=== PATIENT | male | born 1985 | race Caucasian/White ===

== ENCOUNTER 2024-12-16 03:53 | Inpatient (IN) | payer OTHER ==
[2024-12-16] MEDS: LACTATED RINGERS SOLUTION 1000 ML INFUS.BAG IV ONE (05:13)
[2024-12-16] MEDS ORDERED: VANCOMYCIN 1 GM PREMIX (F) 1 GM/200 ML BAG ONE (05:26)
[2024-12-16] MEDS ORDERED: PIPERACILLIN/TAZOB 2.25 GM 2.25 GM/50 ML BAG IVPB ONE (05:26)
[2024-12-16] MEDS ORDERED: FENTANYL CITRATE/PF 50 MCG/ML VIAL ONE ×2 (05:54→07:45)
[2024-12-16 07:24] LABS: HEMATOCRIT 32.2 % (35.4-49); HEMOGLOBIN 10.9 GM/dL (11.7-16.9); MCHC 33.8 g/dl (32.0-35.9); MEAN CELL VOLUME 91.8 fl (80-96); MEAN PLT VOLUME 7.4 fl (7.5-11.1); PLATELET COUNT 260 10^3/uL (134-434); RBC 3.51 M/mm3 (4.00-5.60); RDW 15.3 % (11.9-15.9); WHITE BLOOD COUNT 6.9 K/mm3 (4.0-10.0)
[2024-12-16 07:36] LABS: INR 1.23 (0.83-1.09); PROTHROMBIN TIME (PATIENT) 13.5 SEC (9.7-13.0)
[2024-12-16 07:38] LABS: ACTIVATED PTT 33.7 SECONDS (25.2-36.5)
[2024-12-16] MEDS: VANCOMYCIN 1,000 MG in DEXTROSE 5%-WATER - 250 ML IVPB ONE (07:38)
[2024-12-16 07:44] LABS: CHLORIDE 85 mmol/L (98-107); POTASSIUM 3.7 mmol/L (3.5-5.1); SODIUM 129 mmol/L (136-145)
[2024-12-16] MEDS: NOREPINEPHRINE BITARTRATE/D5W 8 MG/250 ML BAG IVPB SCH (07:45)
[2024-12-16 07:46] LABS: ALBUMIN 2.5 g/dl (3.4-5.0); ANION GAP 13 mmol/L (4-13); BLOOD UREA NITROGEN 40.1 mg/dL (7-18); CALCIUM 9.7 mg/dL (8.5-10.1); CO2 31 mmol/L (21-32); GLUCOSE,RANDOM 88 mg/dL (74-106)
[2024-12-16 07:50] LABS: CREATININE 5.6 mg/dL (0.55-1.3); SGOT/AST 8 U/L (15-37)
[2024-12-16 07:51] LABS: BILIRUBIN,TOTAL 0.7 mg/dL (0.2-1); SGPT/ALT < 6 U/L (13-61)
[2024-12-16 07:53] LABS: ALK PHOS 130 U/L (45-117)
[2024-12-16] MEDS ORDERED: ONDANSETRON 4 MG/2 ML VIAL ONE ×2 (07:54→16:49)
[2024-12-16] MEDS: ONDANSETRON 4 MG/2 ML VIAL IVPUSH ONE (08:06)
[2024-12-16] MEDS: NOREPINEPHRINE BITARTRATE 16,000 MCG in SODIUM CHLORIDE 484 ML IV SCH (08:17)
[2024-12-16] MEDS: PIPERACILLIN/TAZOB 2.25 GM 2.25 GM in DEXTROSE 5%-WATER - 50 ML IVPB ONE (09:07)
[2024-12-16] MEDS ORDERED: ARTIFICIAL TEARS OPHTHALMIC DROPS OU PRN (09:16)
[2024-12-16 09:45] LABS: PLATELET ESTIMATE ADEQUATE
[2024-12-16] MEDS ORDERED: FENTANYL PATCH WASTE TD PRN (10:11)
[2024-12-16] MEDS: oxyCODONE HCL 5 MG TABLET PO PRN (10:31)
[2024-12-16] MEDS: fentaNYL 75mcg/hr PATCH.TD72 TD SCH (10:33)
[2024-12-16] MEDS: LIDOCAINE 5% TOPICAL PATCH TP SCH (10:35)
[2024-12-16] MEDS: MIDODRINE HCL 5 MG TABLET PO SCH (10:35)
[2024-12-16] MEDS: PANTOPRAZOLE 40 MG TABLET PO SCH (10:35)
[2024-12-16] MEDS: FLUoxetine HCL 20 MG CAPSULE PO SCH (10:35)
[2024-12-16] MEDS: INSULIN ASPART SLIDING SCALE (NOVOLOG) 1 VIAL SQ SCH (14:53)
[2024-12-16] MEDS: POLYETHYLENE GLYCOL (HEALTHYLAX) 3350 17 GM PACKET PO SCH (14:54)
[2024-12-16] MEDS: MUPIROCIN 2% TOPICAL OINTMENT FOR DECOLONIZATION NS SCH (14:55)
[2024-12-16] MEDS: SEVELAMER CARBONATE 800 MG TAB (FP) PO SCH (15:10)
[2024-12-16] MEDS: HEPARIN NA (PORCINE) 5,000 UNITS/ML 1ML VIAL SQ SCH (16:07)
[2024-12-16] MEDS ORDERED: SODIUM CHLORIDE 250 ML IV PRN (16:49)
[2024-12-16] MEDS: ONDANSETRON 4 MG/2 ML VIAL IVPUSH PRN (16:55)
[2024-12-16] MEDS: HYDROmorphone HCL CARPU-JECT 2 MG/1 ML DISP.SYRIN IVPUSH ONE (16:55)
[2024-12-16] MEDS: EPOETIN ALFA-EPBX 4,000 UNIT/ML VIAL SQ ONE (20:21)
[2024-12-16] MEDS: ACETAMINOPHEN 1000 MG/100 ML BAG IVPB PRN (20:27)
[2024-12-16] MEDS: GABAPENTIN 100 MG CAPSULE PO SCH (21:16)
[2024-12-16] MEDS: MELATONIN 5 MG TABLETS PO SCH (21:24)
[2024-12-16] MEDS ORDERED: CHLORHEXIDINE GLUCONATE 4% CLEANSER FOR DECOLONIZATION TP SCH (22:00)
[2024-12-16] MEDS: LIDOCAINE PATCH REMOVAL MC SCH (22:12)
[2024-12-17] MEDS: BISACODYL 10 MG SUPP.RECT PR ONE (05:00)
[2024-12-17] MEDS: HYDROCORTISONE SOD SUCCINATE 100 MG/2 ML VIAL IVPB SCH (06:38)
[2024-12-17] MEDS: VASopressin 40 UNITS/100 ML BAG IV SCH (06:56)
[2024-12-17 07:07] LABS: BASO % 0.9 % (0-2.0); EOS % 4.2 % (0-4.5); HEMATOCRIT 36.6 % (35.4-49); HEMOGLOBIN 11.9 GM/dL (11.7-16.9); LYMPH % 7.2 % (8-40); MCH 30.5 pg (25.7-33.7); MCHC 32.6 g/dl (32.0-35.9); MEAN CELL VOLUME 93.6 fl (80-96); MEAN PLT VOLUME 7.3 fl (7.5-11.1); MONO % 8.6 % (3.8-10.2); NEUT % 79.1 % (42.8-82.8); PLATELET COUNT 355 10^3/uL (134-434); RBC 3.91 M/mm3 (4.00-5.60); RDW 15.6 % (11.9-15.9); WHITE BLOOD COUNT 11.2 K/mm3 (4.0-10.0)
[2024-12-17 07:18] LABS: CHLORIDE 90 mmol/L (98-107); POTASSIUM 3.6 mmol/L (3.5-5.1); SODIUM 132 mmol/L (136-145)
[2024-12-17 07:21] LABS: ALBUMIN 2.4 g/dl (3.4-5.0); ANION GAP 10 mmol/L (4-13); BLOOD UREA NITROGEN 26.2 mg/dL (7-18); CALCIUM 9.7 mg/dL (8.5-10.1); CO2 32 mmol/L (21-32); GLUCOSE,RANDOM 92 mg/dL (74-106); MAGNESIUM 1.8 mg/dL (1.8-2.4)
[2024-12-17 07:24] LABS: CREATININE 4.2 mg/dL (0.55-1.3); SGOT/AST 9 U/L (15-37); SGPT/ALT < 6 U/L (13-61)
[2024-12-17 07:26] LABS: BILIRUBIN,TOTAL 0.6 mg/dL (0.2-1); TOT PROT 8.3 g/dl (6.4-8.2)
[2024-12-17 07:27] LABS: ALK PHOS 142 U/L (45-117)
[2024-12-17] MEDS: CEFTRIAXONE 1 G/50 ML PREMIX 50 ML IVPB SCH (09:45)
[2024-12-17] MEDS: MIDODRINE HCL 5 MG TABLET PO SCH (09:46)
[2024-12-17] MEDS: oxyCODONE HCL 5 MG TABLET PO PRN (10:24)
[2024-12-17] MEDS: HYDROmorphone HCL CARPU-JECT 2 MG/1 ML DISP.SYRIN IVPUSH PRN (12:40)
[2024-12-18] MEDS: SODIUM CHLORIDE 1,000 ML IV STA (03:47)
[2024-12-18 08:06] LABS: BASO % 0.3 % (0-2.0); EOS % 0.9 % (0-4.5); HEMATOCRIT 33.6 % (35.4-49); HEMOGLOBIN 11.5 GM/dL (11.7-16.9); LYMPH % 7.1 % (8-40); MCH 31.2 pg (25.7-33.7); MCHC 34.1 g/dl (32.0-35.9); MEAN CELL VOLUME 91.7 fl (80-96); MEAN PLT VOLUME 7.4 fl (7.5-11.1); MONO % 5.9 % (3.8-10.2); NEUT % 85.8 % (42.8-82.8); PLATELET COUNT 346 10^3/uL (134-434); RBC 3.67 M/mm3 (4.00-5.60); RDW 15.5 % (11.9-15.9); WHITE BLOOD COUNT 10.7 K/mm3 (4.0-10.0)
[2024-12-18 08:27] LABS: CHLORIDE 87 mmol/L (98-107); SODIUM 129 mmol/L (136-145)
[2024-12-18 08:35] LABS: ALBUMIN 2.5 g/dl (3.4-5.0); BLOOD UREA NITROGEN 34.5 mg/dL (7-18); CREATININE 5.4 mg/dL (0.55-1.3); GLUCOSE,RANDOM 84 mg/dL (74-106); PHOSPHOROUS 7.2 mg/dL (2.5-4.9)
[2024-12-18 08:36] LABS: BILIRUBIN,TOTAL 0.6 mg/dL (0.2-1); TOT PROT 8.2 g/dl (6.4-8.2)
[2024-12-18 08:37] LABS: ANION GAP 12 mmol/L (4-13); CALCIUM 9.9 mg/dL (8.5-10.1); CO2 29 mmol/L (21-32); MAGNESIUM 2.2 mg/dL (1.8-2.4)
[2024-12-18 08:38] LABS: ALK PHOS 148 U/L (45-117); SGOT/AST 9 U/L (15-37)
[2024-12-18 08:39] LABS: SGPT/ALT < 6 U/L (13-61)
[2024-12-18] MEDS: AZITHROMYCIN IVPB 500 MG/250 ML BAG IVPB SCH (12:27)
[2024-12-18 14:03] VITALS: BMI 18.8
[2024-12-18] MEDS: HYDROmorphone HCL CARPU-JECT 2 MG/1 ML DISP.SYRIN IVPUSH ONE (18:19)
[2024-12-18] MEDS: LIDOCAINE HCL 2% JELLY 10 ML CARTRIDGE UR ONE (18:20)
[2024-12-18] MEDS: ACETAMINOPHEN 1000 MG/100 ML BAG IVPB PRN (22:59)
[2024-12-19 07:20] LABS: BASO % 0.2 % (0-2.0); EOS % 0.5 % (0-4.5); HEMATOCRIT 37.3 % (35.4-49); HEMOGLOBIN 12.3 GM/dL (11.7-16.9); LYMPH % 8.4 % (8-40); MCH 30.7 pg (25.7-33.7); MCHC 32.9 g/dl (32.0-35.9); MEAN CELL VOLUME 93.5 fl (80-96); MEAN PLT VOLUME 7.2 fl (7.5-11.1); MONO % 5.8 % (3.8-10.2); NEUT % 85.1 % (42.8-82.8); PLATELET COUNT 352 10^3/uL (134-434); RBC 3.99 M/mm3 (4.00-5.60); RDW 15.8 % (11.9-15.9); WHITE BLOOD COUNT 13.9 K/mm3 (4.0-10.0)
[2024-12-19 07:43] LABS: POTASSIUM 4.6 mmol/L (3.5-5.1)
[2024-12-19 07:52] LABS: CALCIUM 9.7 mg/dL (8.5-10.1)
[2024-12-19 07:53] LABS: ALBUMIN 2.5 g/dl (3.4-5.0); CO2 28 mmol/L (21-32); GLUCOSE,RANDOM 79 mg/dL (74-106)
[2024-12-19 07:56] LABS: CREATININE 6.2 mg/dL (0.55-1.3)
[2024-12-19 07:57] LABS: TOT PROT 7.9 g/dl (6.4-8.2)
[2024-12-19 08:49] LABS: ALK PHOS 164 U/L (45-117); ANION GAP 14 mmol/L (4-13); BILIRUBIN,TOTAL 0.5 mg/dL (0.2-1); BLOOD UREA NITROGEN 46.8 mg/dL (7-18); CHLORIDE 90 mmol/L (98-107); MAGNESIUM 2.3 mg/dL (1.8-2.4); SGOT/AST 7 U/L (15-37); SGPT/ALT < 6 U/L (13-61); SODIUM 131 mmol/L (136-145)
[2024-12-19] MEDS ORDERED: SODIUM CHLORIDE 250 ML IV PRN (08:55)
[2024-12-19] MEDS: HEPARIN NA (PORCINE) 5,000 UNITS/ML 1ML VIAL IVPUSH ONE (09:00)
[2024-12-19 11:02] LABS: HIV INTERPRETATION NEGATIVE (NEGATIVE)
[2024-12-19] MEDS: HYDROmorphone HCL CARPU-JECT 2 MG/1 ML DISP.SYRIN IVPUSH ONE (11:15)
[2024-12-19] MEDS: MINERAL OIL 30 ML UNIT-DOSE CUP NGT ONE (12:30)
[2024-12-20] MEDS ORDERED: DEXTROSE 5%-0.45% SALINE 1,000 ML IV SCH (07:45)
[2024-12-20 08:17] LABS: HEMATOCRIT 37.1 % (35.4-49); MCH 30.4 pg (25.7-33.7); MCHC 32.3 g/dl (32.0-35.9); MEAN CELL VOLUME 94.2 fl (80-96); PLATELET COUNT 299 10^3/uL (134-434); RBC 3.94 M/mm3 (4.00-5.60); RDW 15.7 % (11.9-15.9)
[2024-12-20] MEDS: LIDOCAINE HCL 2% JELLY 10 ML CARTRIDGE TP PRN (08:40)
[2024-12-20 08:46] LABS: CHLORIDE 93 mmol/L (98-107); POTASSIUM 3.9 mmol/L (3.5-5.1); SODIUM 134 mmol/L (136-145)
[2024-12-20] MEDS: DEXTROSE 5%-NORMAL SALINE 1,000 ML IV SCH ×3 (08:49→18:49)
[2024-12-20 08:55] LABS: CALCIUM 9.4 mg/dL (8.5-10.1)
[2024-12-20 08:56] LABS: ALBUMIN 2.5 g/dl (3.4-5.0); ANION GAP 10 mmol/L (4-13); BLOOD UREA NITROGEN 28.8 mg/dL (7-18); CO2 30 mmol/L (21-32); GLUCOSE,RANDOM 78 mg/dL (74-106); MAGNESIUM 2.1 mg/dL (1.8-2.4)
[2024-12-20 08:58] LABS: SGPT/ALT < 6 U/L (13-61)
[2024-12-20 08:59] LABS: CREATININE 4.2 mg/dL (0.55-1.3); PHOSPHOROUS 6.4 mg/dL (2.5-4.9); SGOT/AST 10 U/L (15-37)
[2024-12-20 09:00] LABS: BILIRUBIN,TOTAL 0.9 mg/dL (0.2-1); TOT PROT 8.2 g/dl (6.4-8.2)
[2024-12-20 09:01] LABS: ALK PHOS 188 U/L (45-117)
[2024-12-20] MEDS ORDERED: DEXTROSE 5%-NORMAL SALINE 1,000 ML IV SCH ×2 (11:59→17:43)
[2024-12-20] MEDS: HYDROmorphone HCL CARPU-JECT 2 MG/1 ML DISP.SYRIN IVPUSH ONE (12:31)
[2024-12-20] MEDS ORDERED: ONDANSETRON 4 MG/2 ML VIAL IVPUSH PRN (17:43)
[2024-12-20] MEDS ORDERED: LIDOCAINE HCL 2% JELLY 10 ML CARTRIDGE TP PRN (17:43)
[2024-12-20] MEDS: HYDROCORTISONE SOD SUCCINATE 100 MG/2 ML VIAL IVPB SCH (18:00)
[2024-12-20] MEDS ORDERED: HYDROCORTISONE SOD SUCCINATE 100 MG/2 ML VIAL IVPB SCH (18:00)
[2024-12-20] MEDS: IOHEXOL (OMNIPAQUE IV) 350 MG/ML - 100 ML BOTTLE GT ONE (18:19)
[2024-12-20] MEDS: MIDODRINE HCL 5 MG TABLET PO SCH (18:57)
[2024-12-20] MEDS: CEFTRIAXONE 2 GM-D5W BAG 2 GM/50 ML BAG IVPB SCH (20:16)
[2024-12-20] MEDS: VANCOMYCIN 1,000 MG in DEXTROSE 5%-WATER - 250 ML IVPB ONE (20:16)
[2024-12-20] MEDS: oxyCODONE HCL 5 MG TABLET PO PRN (20:39)
[2024-12-20] MEDS: GABAPENTIN 100 MG CAPSULE PO SCH (21:32)
[2024-12-20] MEDS: HEPARIN NA (PORCINE) 5,000 UNITS/ML 1ML VIAL SQ SCH (21:32)
[2024-12-20] MEDS: MELATONIN 5 MG TABLETS PO SCH (21:32)
[2024-12-20] MEDS: MIRTAZAPINE 15 MG TABLET (FP) PO SCH (21:32)
[2024-12-20] MEDS: POLYETHYLENE GLYCOL (HEALTHYLAX) 3350 17 GM PACKET PO SCH (21:33)
[2024-12-20] MEDS: LIDOCAINE PATCH REMOVAL MC SCH (21:33)
[2024-12-20] MEDS ORDERED: MIRTAZAPINE 15 MG TABLET (FP) PO SCH (22:00)
[2024-12-20] MEDS: INSULIN ASPART SLIDING SCALE (NOVOLOG) 1 VIAL SQ SCH (22:21)
[2024-12-21] MEDS: HYDROmorphone HCL CARPU-JECT 2 MG/1 ML DISP.SYRIN IVPUSH PRN (00:56)
[2024-12-21] MEDS: SEVELAMER CARBONATE 800 MG TAB (FP) PO SCH (06:34)
[2024-12-21] MEDS ORDERED: SODIUM CHLORIDE 250 ML IV PRN (07:07)
[2024-12-21] MEDS ORDERED: HYDROmorphone HCL CARPU-JECT 2 MG/1 ML DISP.SYRIN IVPUSH PRN (08:00)
[2024-12-21 08:08] LABS: BASO % 0.8 % (0-2.0); EOS % 2.2 % (0-4.5); HEMATOCRIT 36.3 % (35.4-49); HEMOGLOBIN 11.6 GM/dL (11.7-16.9); LYMPH % 16.9 % (8-40); MCH 30.3 pg (25.7-33.7); MCHC 32.1 g/dl (32.0-35.9); MEAN CELL VOLUME 94.6 fl (80-96); MEAN PLT VOLUME 6.8 fl (7.5-11.1); MONO % 7.9 % (3.8-10.2); NEUT % 72.2 % (42.8-82.8); PLATELET COUNT 213 10^3/uL (134-434); RBC 3.84 M/mm3 (4.00-5.60); RDW 16.1 % (11.9-15.9); WHITE BLOOD COUNT 6.7 K/mm3 (4.0-10.0)
[2024-12-21 08:33] LABS: BLOOD UREA NITROGEN 39.5 mg/dL (7-18); CALCIUM 9.2 mg/dL (8.5-10.1)
[2024-12-21 08:36] LABS: CREATININE 5.1 mg/dL (0.55-1.3)
[2024-12-21] MEDS ORDERED: RIFAMPIN 300 MG CAPSULE PO SCH (10:00)
[2024-12-21] MEDS: RIFAMPIN 300 MG CAPSULE PO SCH (12:21)
[2024-12-21] MEDS: FLUoxetine HCL 20 MG CAPSULE PO SCH (12:21)
[2024-12-21] MEDS: PANTOPRAZOLE 40 MG TABLET PO SCH (12:21)
[2024-12-21] MEDS: CEFTRIAXONE 1 G/50 ML PREMIX 50 ML IVPB SCH (12:28)
[2024-12-21] MEDS: LIDOCAINE 5% TOPICAL PATCH TP SCH (12:29)
[2024-12-21] MEDS: AZITHROMYCIN IVPB 500 MG/250 ML BAG IVPB SCH (13:02)
[2024-12-22] MEDS ORDERED: VANCOMYCIN 1,000 MG VIAL (RESTRICTED TO ID ONLY) ONE (07:56)
[2024-12-22] MEDS ORDERED: GENTAMICIN SO4 80 MG/2 ML VIAL ONE ×2 (07:56→12:20)
[2024-12-22] MEDS ORDERED: THROMBIN (BOVINE) 20,000 UNIT VIAL TP ONE (07:56)
[2024-12-22] MEDS ORDERED: BUPIVACAINE HCL/PF 0.5% (5MG/ML) 10 ML VIAL ONE (07:57)
[2024-12-22] MEDS ORDERED: LIDOCAINE 1%/EPI 1:100000 (20 ML MULTI DOSE VIAL) ONE (07:57)
[2024-12-22] MEDS ORDERED: BUPIVACAINE LIPOSOME/PF (EXPAREL) 266 MG/20 ML VIAL ONE (07:57)
[2024-12-22 08:10] LABS: INR 1.06 (0.83-1.09); PROTHROMBIN TIME (PATIENT) 11.6 SEC (9.7-13.0)
[2024-12-22 08:11] LABS: POTASSIUM 3.5 mmol/L (3.5-5.1)
[2024-12-22 08:13] LABS: ACTIVATED PTT 31.4 SECONDS (25.2-36.5)
[2024-12-22 08:16] LABS: BLOOD UREA NITROGEN 21.6 mg/dL (7-18); CALCIUM 8.7 mg/dL (8.5-10.1)
[2024-12-22 08:17] LABS: ALBUMIN 2.5 g/dl (3.4-5.0); MAGNESIUM 1.8 mg/dL (1.8-2.4)
[2024-12-22 08:21] LABS: BASO % 0.7 % (0-2.0); CREATININE 3.5 mg/dL (0.55-1.3); EOS % 1.9 % (0-4.5); LYMPH % 13.8 % (8-40); MCH 30.7 pg (25.7-33.7); MCHC 32.5 g/dl (32.0-35.9); MEAN CELL VOLUME 94.6 fl (80-96); MONO % 6.1 % (3.8-10.2); NEUT % 77.5 % (42.8-82.8); PLATELET COUNT 176 10^3/uL (134-434); RDW 15.8 % (11.9-15.9); WHITE BLOOD COUNT 7.2 K/mm3 (4.0-10.0)
[2024-12-22 08:22] LABS: BILIRUBIN,TOTAL 0.4 mg/dL (0.2-1); TOT PROT 7.1 g/dl (6.4-8.2)
[2024-12-22] MEDS: fentaNYL 75mcg/hr PATCH.TD72 TD SCH (09:24)
[2024-12-22] MEDS ORDERED: VASopressin 20 UNITS/ML VIAL IV ONE (10:27)
[2024-12-22] MEDS ORDERED: ROCURONIUM BROMIDE 50 MG/5 ML SYRINGE ONE ×3 (10:34→12:09)
[2024-12-22] MEDS ORDERED: MIDAZOLAM HCL 2 MG/2 ML SINGLE DOSE VIAL ONE (10:34)
[2024-12-22] MEDS ORDERED: ROCURONIUM BROMIDE 50 MG/5 ML VIAL ONE (10:34)
[2024-12-22] MEDS ORDERED: ETOMIDATE 20 MG/10 ML VIAL IVPUSH ONE (10:34)
[2024-12-22] MEDS: ceFAZolin SODIUM 1 GM VIAL IVPB ONE (11:10)
[2024-12-22] MEDS: VANCOMYCIN 1,000 MG VIAL (RESTRICTED TO ID ONLY) IVPB ONE (11:10)
[2024-12-22] MEDS ORDERED: PROPOFOL 20 ML ONE (11:14)
[2024-12-22] MEDS: LIDOCAINE 1%/EPI 1:100000 (20 ML MULTI DOSE VIAL) IJ ONE (11:16)
[2024-12-22] MEDS ORDERED: HYDROmorphone HCl 2 MG/ML VIAL ONE (12:33)
[2024-12-22] MEDS: BUPIVACAINE HCL/PF 0.5% (5MG/ML) 10 ML VIAL IJ ONE (12:38)
[2024-12-22] MEDS: BUPIVACAINE LIPOSOME/PF (EXPAREL) 266 MG/20 ML VIAL NR ONE (12:38)
[2024-12-22] MEDS ORDERED: SUGAMMADEX SODIUM 200 MG/2 ML VIAL ONE (13:01)
[2024-12-22] MEDS ORDERED: diphenhydrAMINE HCL 25 MG CAPSULE (FP) PO PRN (13:14)
[2024-12-22] MEDS ORDERED: ONDANSETRON 4 MG/2 ML VIAL IVPUSH PRN (13:26)
[2024-12-23 08:35] LABS: HEMATOCRIT 33.5 % (35.4-49); HEMOGLOBIN 10.6 GM/dL (11.7-16.9); MCH 30.2 pg (25.7-33.7); MCHC 31.7 g/dl (32.0-35.9); MEAN CELL VOLUME 95.3 fl (80-96); MEAN PLT VOLUME 6.8 fl (7.5-11.1); PLATELET COUNT 149 10^3/uL (134-434); RBC 3.51 M/mm3 (4.00-5.60); RDW 15.9 % (11.9-15.9); WHITE BLOOD COUNT 7.2 K/mm3 (4.0-10.0)
[2024-12-23 09:00] LABS: CHLORIDE 99 mmol/L (98-107); POTASSIUM 3.6 mmol/L (3.5-5.1); SODIUM 137 mmol/L (136-145)
[2024-12-23 09:08] LABS: CALCIUM 8.8 mg/dL (8.5-10.1)
[2024-12-23 09:09] LABS: ALBUMIN 2.5 g/dl (3.4-5.0); ANION GAP 12 mmol/L (4-13); BLOOD UREA NITROGEN 33.4 mg/dL (7-18); CO2 26 mmol/L (21-32); GLUCOSE,RANDOM 70 mg/dL (74-106); MAGNESIUM 1.9 mg/dL (1.8-2.4)
[2024-12-23 09:12] LABS: CREATININE 4.5 mg/dL (0.55-1.3); SGOT/AST 12 U/L (15-37)
[2024-12-23 09:14] LABS: BILIRUBIN,TOTAL 0.4 mg/dL (0.2-1); TOT PROT 6.9 g/dl (6.4-8.2)
[2024-12-23 09:20] LABS: ALK PHOS 170 U/L (45-117); SGPT/ALT < 6 U/L (13-61)
[2024-12-23] MEDS: oxyCODONE HCL 5 MG TABLET PO PRN (11:24)
[2024-12-23] MEDS ORDERED: SODIUM CHLORIDE 250 ML IV PRN (11:50)
[2024-12-23] MEDS: ACETAMINOPHEN 1000 MG/100 ML BAG IVPB SCH (13:19)
[2024-12-23] MEDS: GABAPENTIN 100 MG CAPSULE PO SCH (13:20)
[2024-12-23] MEDS: MIDODRINE HCL 5 MG TABLET PO SCH (15:47)
[2024-12-23] MEDS: EPOETIN ALFA-EPBX 3,000 UNIT/ML VIAL IVPUSH ONE (17:57)
[2024-12-23] MEDS: HEPARIN NA (PORCINE) 5,000 UNITS/ML 1ML VIAL IVPUSH ONE (17:58)
[2024-12-23] MEDS: CEFTRIAXONE 1 G/50 ML PREMIX 50 ML IVPB ONE (22:07)
[2024-12-24] MEDS: CEFTRIAXONE 2 GM-D5W BAG 2 GM/50 ML BAG IVPB SCH (09:06)
[2024-12-24 10:37] LABS: CHLORIDE 100 mmol/L (98-107); POTASSIUM 4.1 mmol/L (3.5-5.1); SODIUM 137 mmol/L (136-145)
[2024-12-24 10:41] LABS: CALCIUM 8.9 mg/dL (8.5-10.1)
[2024-12-24 10:42] LABS: ALBUMIN 2.4 g/dl (3.4-5.0); ANION GAP 9 mmol/L (4-13); BLOOD UREA NITROGEN 24.6 mg/dL (7-18); CO2 28 mmol/L (21-32); GLUCOSE,RANDOM 63 mg/dL (74-106); MAGNESIUM 1.9 mg/dL (1.8-2.4)
[2024-12-24 10:45] LABS: CREATININE 3.3 mg/dL (0.55-1.3); SGOT/AST 10 U/L (15-37)
[2024-12-24 10:47] LABS: BILIRUBIN,TOTAL 0.4 mg/dL (0.2-1); TOT PROT 6.8 g/dl (6.4-8.2)
[2024-12-24 10:48] LABS: ALK PHOS 154 U/L (45-117)
[2024-12-24 10:54] LABS: SGPT/ALT < 6 U/L (13-61)
[2024-12-24] MEDS: HYDROmorphone HCL CARPU-JECT 2 MG/1 ML DISP.SYRIN IVPUSH ONE (15:10)
[2024-12-24] MEDS: HYDROCORTISONE SOD SUCCINATE 100 MG/2 ML VIAL IVPB SCH (17:35)
[2024-12-25 09:43] LABS: BASO % 0.9 % (0-2.0); EOS % 2.2 % (0-4.5); HEMATOCRIT 31.9 % (35.4-49); HEMOGLOBIN 10.2 GM/dL (11.7-16.9); LYMPH % 17.1 % (8-40); MCH 30.3 pg (25.7-33.7); MCHC 31.9 g/dl (32.0-35.9); MEAN CELL VOLUME 94.9 fl (80-96); MEAN PLT VOLUME 7.2 fl (7.5-11.1); MONO % 8.6 % (3.8-10.2); NEUT % 71.2 % (42.8-82.8); PLATELET COUNT 135 10^3/uL (134-434); RBC 3.36 M/mm3 (4.00-5.60); RDW 16.1 % (11.9-15.9); WHITE BLOOD COUNT 7.1 K/mm3 (4.0-10.0)
[2024-12-25 10:05] LABS: CHLORIDE 98 mmol/L (98-107); POTASSIUM 4.5 mmol/L (3.5-5.1); SODIUM 135 mmol/L (136-145)
[2024-12-25 10:10] LABS: ALBUMIN 2.3 g/dl (3.4-5.0); ANION GAP 9 mmol/L (4-13); CO2 28 mmol/L (21-32); GLUCOSE,RANDOM 66 mg/dL (74-106); MAGNESIUM 1.8 mg/dL (1.8-2.4)
[2024-12-25 10:13] LABS: ALK PHOS 145 U/L (45-117); CREATININE 4.3 mg/dL (0.55-1.3); SGOT/AST 9 U/L (15-37)
[2024-12-25 10:15] LABS: TOT PROT 6.8 g/dl (6.4-8.2)
[2024-12-25] MEDS: FENTANYL PATCH WASTE TD PRN (10:18)
[2024-12-25 10:34] LABS: BILIRUBIN,TOTAL 0.4 mg/dL (0.2-1); SGPT/ALT < 6 U/L (13-61)
[2024-12-25] MEDS ORDERED: SEVELAMER CARBONATE 800 MG TAB (FP) PO SCH (12:12)
[2024-12-25] MEDS: SEVELAMER CARBONATE 800 MG TAB (FP) PO SCH (12:26)
[2024-12-25 19:07] LABS: ANTIGLOMERULAR BASEMENT MEN.AB <0.2 units (0.0-0.9)
[2024-12-26 09:12] LABS: BASO % 0.9 % (0-2.0); EOS % 2.2 % (0-4.5); HEMOGLOBIN 10.6 GM/dL (11.7-16.9); LYMPH % 12.9 % (8-40); MCH 30.7 pg (25.7-33.7); MEAN CELL VOLUME 96.1 fl (80-96); MEAN PLT VOLUME 7.6 fl (7.5-11.1); PLATELET COUNT 144 10^3/uL (134-434); RBC 3.43 M/mm3 (4.00-5.60); RDW 16.6 % (11.9-15.9); WHITE BLOOD COUNT 9.3 K/mm3 (4.0-10.0)
[2024-12-26] MEDS ORDERED: SODIUM CHLORIDE 250 ML IV PRN (10:00)
[2024-12-26 10:30] LABS: CHLORIDE 98 mmol/L (98-107); POTASSIUM 4.8 mmol/L (3.5-5.1); SODIUM 134 mmol/L (136-145)
[2024-12-26 10:31] LABS: ALBUMIN 2.3 g/dl (3.4-5.0); ANION GAP 14 mmol/L (4-13); CO2 22 mmol/L (21-32); GLUCOSE,RANDOM 61 mg/dL (74-106); MAGNESIUM 1.8 mg/dL (1.8-2.4)
[2024-12-26 10:34] LABS: SGOT/AST 10 U/L (15-37); SGPT/ALT < 6 U/L (13-61)
[2024-12-26 10:41] LABS: ALK PHOS 153 U/L (45-117); BILIRUBIN,TOTAL 0.4 mg/dL (0.2-1); TOT PROT 6.8 g/dl (6.4-8.2)
[2024-12-26] MEDS: EPOETIN ALFA-EPBX 3,000 UNIT/ML VIAL IVPUSH ONE (11:38)
[2024-12-26] MEDS: predniSONE 20 MG TABLET (UD) PO SCH (13:29)
[2024-12-27 06:23] VITALS: RESP 18
[2024-12-27 08:50] LABS: BASO % 1.2 % (0-2.0); HEMATOCRIT 26.3 % (35.4-49); HEMOGLOBIN 8.5 GM/dL (11.7-16.9); MCH 30.7 pg (25.7-33.7); MCHC 32.4 g/dl (32.0-35.9); MEAN CELL VOLUME 94.8 fl (80-96); MEAN PLT VOLUME 7.2 fl (7.5-11.1); MONO % 10.6 % (3.8-10.2); NEUT % 73.2 % (42.8-82.8); PLATELET COUNT 129 10^3/uL (134-434); RBC 2.78 M/mm3 (4.00-5.60); RDW 16.5 % (11.9-15.9); WHITE BLOOD COUNT 6.7 K/mm3 (4.0-10.0)
[2024-12-27 09:08] LABS: CHLORIDE 100 mmol/L (98-107); POTASSIUM 4.3 mmol/L (3.5-5.1); SODIUM 138 mmol/L (136-145)
[2024-12-27 09:11] LABS: ANION GAP 9 mmol/L (4-13); BLOOD UREA NITROGEN 37.7 mg/dL (7-18); CALCIUM 8.6 mg/dL (8.5-10.1); CO2 29 mmol/L (21-32); GLUCOSE,RANDOM 74 mg/dL (74-106); MAGNESIUM 1.6 mg/dL (1.8-2.4)
[2024-12-27 09:14] LABS: CREATININE 3.9 mg/dL (0.55-1.3); SGOT/AST 7 U/L (15-37); SGPT/ALT < 6 U/L (13-61)
[2024-12-27 09:16] LABS: BILIRUBIN,TOTAL 0.3 mg/dL (0.2-1); TOT PROT 5.7 g/dl (6.4-8.2)
[2024-12-27 09:18] LABS: ALK PHOS 96 U/L (45-117)
[2024-12-27 11:01] VITALS: BP 128/96; PULSE 97; TEMP 98.4
[2024-12-28] MEDS ORDERED: predniSONE 10 MG TABLET (UD) PO SCH (10:00)
[2024-12-28 15:07] LABS: C-ANCA <1:20 titer (Neg:<1:20)
[2024-12-30] MEDS ORDERED: predniSONE 5 MG TABLET (UD) PO SCH (10:00)
== END 2024-12-27 10:58 | DRG 853 ==
LOC: JER 03:53 → JERBED 09:03 → JICU 09:43 → J8W 12-20 17:26
PROVIDERS: ADMIT Internal Medicine Pulmonary Disease; ATTEND Internal Medicine
PROC: 05HN33Z Insertion of Infusion Device into Left Internal Jugular Vein, Percutaneous Approach (ICD-10-PCS; 2024-12-16)
PROC: B544ZZA Ultrasonography of Left Jugular Veins, Guidance (ICD-10-PCS; 2024-12-16)
PROC: 5A1D70Z Performance of Urinary Filtration, Intermittent, Less than 6 Hours Per Day (ICD-10-PCS; 2024-12-19)
PROC: 0SB20ZZ Excision of Lumbar Vertebral Disc, Open Approach (ICD-10-PCS; 2024-12-22)
PROC: 4A11X4G Monitoring of Peripheral Nervous Electrical Activity, Intraoperative, External Approach (ICD-10-PCS; 2024-12-22)
PROC: 0SG00AJ Fusion of Lumbar Vertebral Joint with Interbody Fusion Device, Posterior Approach, Anterior Column, Open Approach (ICD-10-PCS; principal; 2024-12-22 09:30)
DX: A41.9 Sepsis, unspecified organism (principal); J18.9 Pneumonia, unspecified organism; N18.6 End stage renal disease; R53.2 Functional quadriplegia; R65.21 Severe sepsis with septic shock; E87.1 Hypo-osmolality and hyponatremia; I12.0 Hypertensive chronic kidney disease with stage 5 chronic kidney disease or end stage renal disease; Z94.0 Kidney transplant status; K56.7 Ileus, unspecified; E46 Unspecified protein-calorie malnutrition; Z68.1 Body mass index [BMI] 19.9 or less, adult; K56.609 Unspecified intestinal obstruction, unspecified as to partial versus complete obstruction; R64 Cachexia; M46.26 Osteomyelitis of vertebra, lumbar region; M46.22 Osteomyelitis of vertebra, cervical region; M48.061 Spinal stenosis, lumbar region without neurogenic claudication; L89.152 Pressure ulcer of sacral region, stage 2; Z99.2 Dependence on renal dialysis; M46.46 Discitis, unspecified, lumbar region
CPT/HCPCS: 0241U-QW; 36415; 70450-TC; 71045-TC-FY; 71250-TC; 72125-TC; 72131-TC; 74018-TC-FY; 74176-TC; 76000-TC-FY; 80048; 80053; 82962; 83516; 83520; 83605; 83735; 84100; 84484; 85025; 85027; 85610; 85730; 86140; 86256; 86850; 86870; 86880; 86900; 86901; 86902; 87040; 87070; 87075; 87116; 87205; 87206; 87340; 87389; 87481; 93005; 93010; 94010; 94760; 97116-GP; 97162-GP; 99291; C1713; C1889; G0480; J0131; J1644; J3490; Q5106

== ENCOUNTER 2025-01-13 12:13 | Inpatient (IN) | payer OTHER ==
[2025-01-13 13:04] VITALS: RESP 18; BMI 26.9
[2025-01-13] MEDS: ACETAMINOPHEN 1000 MG/100 ML BAG IVPB ONE ×2 (13:58→22:52)
[2025-01-13] MEDS: oxyCODONE HCL 5 MG TABLET PO ONE ×2 (13:59→18:20)
[2025-01-13] MEDS ORDERED: HYDROmorphone HCL CARPU-JECT 2 MG/1 ML DISP.SYRIN ONE (14:01)
[2025-01-13] MEDS: HYDROmorphone HCl 2 MG/ML VIAL IVPUSH ONE (14:10)
[2025-01-13] MEDS: SODIUM CHLORIDE 0.9% 500 ML INFUS.BAG IV ONE (14:11)
[2025-01-13 15:04] LABS: BASO % 0.6 % (0-2.0); EOS % 6.6 % (0-4.5); HEMATOCRIT 22.6 % (35.4-49); HEMOGLOBIN 7.4 GM/dL (11.7-16.9); LYMPH % 14.3 % (8-40); MCHC 32.9 g/dl (32.0-35.9); MEAN CELL VOLUME 94.4 fl (80-96); MEAN PLT VOLUME 7.3 fl (7.5-11.1); MONO % 6.5 % (3.8-10.2); PLATELET COUNT 153 10^3/uL (134-434); RDW 16.2 % (11.9-15.9); WHITE BLOOD COUNT 5.3 K/mm3 (4.0-10.0)
[2025-01-13 16:49] LABS: INR 1.16 (0.83-1.09); PROTHROMBIN TIME (PATIENT) 12.8 SEC (9.7-13.0)
[2025-01-13 16:52] LABS: ACTIVATED PTT 36.9 SECONDS (25.2-36.5)
[2025-01-13 17:03] LABS: CHLORIDE 103 mmol/L (98-107); POTASSIUM 4.1 mmol/L (3.5-5.1); SODIUM 136 mmol/L (136-145)
[2025-01-13 17:05] LABS: CALCIUM 7.1 mg/dL (8.5-10.1)
[2025-01-13 17:06] LABS: ALBUMIN 1.6 g/dl (3.4-5.0); ANION GAP 15 mmol/L (4-13); CO2 18 mmol/L (21-32); GLUCOSE,RANDOM 72 mg/dL (74-106)
[2025-01-13 17:09] LABS: SGOT/AST 12 U/L (15-37); SGPT/ALT < 6 U/L (13-61)
[2025-01-13 17:10] LABS: BILIRUBIN,TOTAL 0.4 mg/dL (0.2-1); TOT PROT 6.2 g/dl (6.4-8.2)
[2025-01-13 17:12] LABS: ALK PHOS 103 U/L (45-117)
[2025-01-13 17:15] LABS: CREATININE 7.6 mg/dL (0.55-1.3)
[2025-01-13] MEDS ORDERED: SODIUM CHLORIDE 250 ML IV PRN (17:28)
[2025-01-13 18:00] LABS: HIV INTERPRETATION NEGATIVE (NEGATIVE)
[2025-01-13] MEDS ORDERED: LORazepam 1 MG TABLET PO ONE (18:11)
[2025-01-13] MEDS ORDERED: oxyCODONE HCL 5 MG TABLET ONE ×2 (18:12→18:14)
[2025-01-13] MEDS ORDERED: LORazepam 1 MG TABLET ONE (18:12)
[2025-01-13] MEDS ORDERED: LOPERAMIDE HCL 2 MG CAPSULE PO PRN (18:16)
[2025-01-13] MEDS ORDERED: ONDANSETRON 4 MG TABLET PO PRN (18:16)
[2025-01-13] MEDS ORDERED: FENTANYL PATCH WASTE TD PRN (18:16)
[2025-01-13] MEDS ORDERED: ERTAPENEM SODIUM 1 GM VIAL IVPB SCH (18:30)
[2025-01-13] MEDS ORDERED: ERTAPENEM SODIUM 1 GM in SODIUM CHLORIDE 50 ML IVPB SCH (20:00)
[2025-01-13] MEDS ORDERED: RIFAMPIN 300 MG CAPSULE PO SCH (22:00)
[2025-01-13] MEDS: MELATONIN 5 MG TABLETS PO SCH (22:52)
[2025-01-13] MEDS: GABAPENTIN 100 MG CAPSULE PO SCH (22:52)
[2025-01-13] MEDS: MIRTAZAPINE 15 MG TABLET (FP) PO SCH (22:52)
[2025-01-13] MEDS: HEPARIN NA (PORCINE) 5,000 UNITS/ML 1ML VIAL SQ SCH (22:52)
[2025-01-14] MEDS: ACETAMINOPHEN 500 MG TABLET (FP) PO ONE (03:48)
[2025-01-14 08:22] LABS: HEMATOCRIT 19.8 % (35.4-49); MCH 31.5 pg (25.7-33.7); MCHC 32.9 g/dl (32.0-35.9); MEAN CELL VOLUME 95.7 fl (80-96); MEAN PLT VOLUME 7.6 fl (7.5-11.1); PLATELET COUNT 139 10^3/uL (134-434); RBC 2.07 M/mm3 (4.00-5.60); RDW 16.1 % (11.9-15.9); WHITE BLOOD COUNT 4.3 K/mm3 (4.0-10.0)
[2025-01-14 08:30] LABS: CHLORIDE 105 mmol/L (98-107); POTASSIUM 3.5 mmol/L (3.5-5.1); SODIUM 140 mmol/L (136-145)
[2025-01-14 08:33] LABS: ALBUMIN 1.5 g/dl (3.4-5.0); ANION GAP 10 mmol/L (4-13); BLOOD UREA NITROGEN 48.9 mg/dL (7-18); CALCIUM 7.1 mg/dL (8.5-10.1); CO2 25 mmol/L (21-32); HEMOGLOBIN 6.5 GM/dL (11.7-16.9); MAGNESIUM 1.6 mg/dL (1.8-2.4)
[2025-01-14 08:34] LABS: GLUCOSE,RANDOM 63 mg/dL (74-106)
[2025-01-14 08:36] LABS: SGOT/AST 15 U/L (15-37)
[2025-01-14 08:37] LABS: CREATININE 5.8 mg/dL (0.55-1.3); PHOSPHOROUS 8.5 mg/dL (2.5-4.9)
[2025-01-14 08:38] LABS: BILIRUBIN,TOTAL 0.3 mg/dL (0.2-1); TOT PROT 5.5 g/dl (6.4-8.2)
[2025-01-14 08:47] LABS: SGPT/ALT < 6 U/L (13-61)
[2025-01-14 08:58] LABS: ALK PHOS 80 U/L (45-117)
[2025-01-14 09:49] LABS: ANISOCYTOSIS 0; MACROCYTOSIS 0; OVALOCYTE 1+
[2025-01-14] MEDS ORDERED: fentaNYL 75mcg/hr PATCH.TD72 TD SCH (10:00)
[2025-01-14] MEDS ORDERED: CALCIUM ALGINATE TP SCH (10:00)
[2025-01-14] MEDS: FLUoxetine HCL 20 MG CAPSULE PO SCH (10:31)
[2025-01-14] MEDS: MIDODRINE HCL 5 MG TABLET PO SCH (10:31)
[2025-01-14] MEDS: FLUDROCORTISONE ACETATE 0.1 MG TABLET (FP) PO SCH (10:32)
[2025-01-14] MEDS: PANTOPRAZOLE 40 MG TABLET PO SCH (10:32)
[2025-01-14] MEDS: LORazepam 0.5 MG TABLET PO PRN (13:23)
[2025-01-14] MEDS: oxyCODONE HCL 5 MG TABLET PO PRN (13:25)
[2025-01-14 17:20] LABS: RETICULOCYTES 1.07 % (0.5-1.5)
[2025-01-14 17:23] LABS: BASO % 0.7 % (0-2.0); EOS % 7.8 % (0-4.5); HEMATOCRIT 21.2 % (35.4-49); HEMOGLOBIN 7.1 GM/dL (11.7-16.9); LYMPH % 12.9 % (8-40); MCHC 33.7 g/dl (32.0-35.9); MEAN CELL VOLUME 91.8 fl (80-96); MEAN PLT VOLUME 7.2 fl (7.5-11.1); MONO % 7.1 % (3.8-10.2); NEUT % 71.5 % (42.8-82.8); PLATELET COUNT 151 10^3/uL (134-434); RDW 15.9 % (11.9-15.9); WHITE BLOOD COUNT 4.4 K/mm3 (4.0-10.0)
[2025-01-14] MEDS: SILVER SULFADIAZINE 1% TOP CREAM 400 GM JAR TP SCH (18:04)
[2025-01-14] MEDS ORDERED: SODIUM CHLORIDE 250 ML IV PRN (21:56)
[2025-01-14] MEDS: ERTAPENEM SODIUM 1 GM in SODIUM CHLORIDE 50 ML IVPB ONE (23:54)
[2025-01-14] MEDS: HEPARIN NA (PORCINE) 5,000 UNITS/ML 1ML VIAL IVPUSH ONE (23:55)
[2025-01-15 08:58] LABS: EOS % 7.7 % (0-4.5); HEMATOCRIT 21.7 % (35.4-49); HEMOGLOBIN 7.4 GM/dL (11.7-16.9); LYMPH % 13.6 % (8-40); MCH 31.5 pg (25.7-33.7); MEAN CELL VOLUME 92.6 fl (80-96); MEAN PLT VOLUME 7.3 fl (7.5-11.1); MONO % 6.6 % (3.8-10.2); NEUT % 71.1 % (42.8-82.8); PLATELET COUNT 163 10^3/uL (134-434); RBC 2.34 M/mm3 (4.00-5.60); RDW 16.4 % (11.9-15.9); WHITE BLOOD COUNT 5.2 K/mm3 (4.0-10.0)
[2025-01-15 09:22] LABS: CHLORIDE 104 mmol/L (98-107); POTASSIUM 3.8 mmol/L (3.5-5.1); SODIUM 138 mmol/L (136-145)
[2025-01-15 09:25] LABS: ALBUMIN 1.5 g/dl (3.4-5.0); ANION GAP 13 mmol/L (4-13); BLOOD UREA NITROGEN 55.8 mg/dL (7-18); CALCIUM 7.1 mg/dL (8.5-10.1); CO2 22 mmol/L (21-32); GLUCOSE,RANDOM 74 mg/dL (74-106); MAGNESIUM 1.7 mg/dL (1.8-2.4)
[2025-01-15 09:28] LABS: CREATININE 6.3 mg/dL (0.55-1.3); SGOT/AST 13 U/L (15-37); SGPT/ALT < 6 U/L (13-61)
[2025-01-15 09:30] LABS: BILIRUBIN,TOTAL 0.5 mg/dL (0.2-1)
[2025-01-15 09:31] LABS: ALK PHOS 93 U/L (45-117)
[2025-01-15 09:33] LABS: TOT PROT 5.9 g/dl (6.4-8.2)
[2025-01-15] MEDS: fentaNYL 75mcg/hr PATCH.TD72 TD SCH (10:07)
[2025-01-16 06:53] VITALS: BP 131/84; PULSE 84; TEMP 99
[2025-01-16 07:48] LABS: BASO % 0.8 % (0-2.0); HEMATOCRIT 23.8 % (35.4-49); HEMOGLOBIN 7.9 GM/dL (11.7-16.9); LYMPH % 17.5 % (8-40); MCH 30.9 pg (25.7-33.7); MEAN CELL VOLUME 93.7 fl (80-96); MEAN PLT VOLUME 7.6 fl (7.5-11.1); MONO % 7.2 % (3.8-10.2); NEUT % 67.5 % (42.8-82.8); PLATELET COUNT 184 10^3/uL (134-434); RBC 2.54 M/mm3 (4.00-5.60); RDW 16.2 % (11.9-15.9); WHITE BLOOD COUNT 5.3 K/mm3 (4.0-10.0)
[2025-01-16 07:58] LABS: CHLORIDE 104 mmol/L (98-107); POTASSIUM 3.8 mmol/L (3.5-5.1); SODIUM 140 mmol/L (136-145)
[2025-01-16 08:20] LABS: ALK PHOS 83 U/L (45-117)
[2025-01-16 08:27] LABS: CALCIUM 7.6 mg/dL (8.5-10.1)
[2025-01-16 08:28] LABS: ALBUMIN 1.6 g/dl (3.4-5.0); ANION GAP 16 mmol/L (4-13); BLOOD UREA NITROGEN 63.6 mg/dL (7-18); CO2 20 mmol/L (21-32); GLUCOSE,RANDOM 78 mg/dL (74-106)
[2025-01-16 08:29] LABS: SGOT/AST 11 U/L (15-37)
[2025-01-16 08:30] LABS: CREATININE 7.1 mg/dL (0.55-1.3); MAGNESIUM 1.7 mg/dL (1.8-2.4)
[2025-01-16 08:31] LABS: BILIRUBIN,TOTAL 0.4 mg/dL (0.2-1)
[2025-01-16 08:38] LABS: SGPT/ALT < 6 U/L (13-61)
[2025-01-16] MEDS ORDERED: SODIUM CHLORIDE 250 ML IV PRN (09:14)
[2025-01-16] MEDS ORDERED: EPOETIN ALFA-EPBX 4,000 UNIT/ML VIAL SQ ONE (09:15)
== END 2025-01-16 11:37 | DRG 682 ==
LOC: JER 12:13 → JERBED 15:38 → J7W 22:02
PROVIDERS: ADMIT Student in an Organized Health Care Education/Training Program; ATTEND Physician Assistant
PROC: 5A1D70Z Performance of Urinary Filtration, Intermittent, Less than 6 Hours Per Day (ICD-10-PCS; 2025-01-13)
PROC: 05HD33Z Insertion of Infusion Device into Right Cephalic Vein, Percutaneous Approach (ICD-10-PCS; principal; 2025-01-14)
PROC: B54MZZA Ultrasonography of Right Upper Extremity Veins, Guidance (ICD-10-PCS; 2025-01-14)
PROC: 5A1D70Z Performance of Urinary Filtration, Intermittent, Less than 6 Hours Per Day (ICD-10-PCS; 2025-01-14)
DX: I12.0 Hypertensive chronic kidney disease with stage 5 chronic kidney disease or end stage renal disease (principal); N18.6 End stage renal disease; R53.2 Functional quadriplegia; Z94.0 Kidney transplant status; D84.9 Immunodeficiency, unspecified; M46.26 Osteomyelitis of vertebra, lumbar region; M46.22 Osteomyelitis of vertebra, cervical region; M86.9 Osteomyelitis, unspecified; T86.12 Kidney transplant failure; D69.0 Allergic purpura; E46 Unspecified protein-calorie malnutrition; R50.9 Fever, unspecified; G89.29 Other chronic pain; D63.1 Anemia in chronic kidney disease; E78.5 Hyperlipidemia, unspecified; K21.9 Gastro-esophageal reflux disease without esophagitis; E88.09 Other disorders of plasma-protein metabolism, not elsewhere classified; K59.00 Constipation, unspecified; Z74.01 Bed confinement status; Z68.28 Body mass index [BMI] 28.0-28.9, adult
CPT/HCPCS: 0241U-QW; 36415; 36430; 36511; 71045-TC-FY; 72131-TC; 80053; 82272; 83010; 83735; 84100; 85025; 85045; 85610; 85651; 85730; 86140; 86803; 86870; 86880; 86902; 86922; 87040; 87340; 87389; 93005; 93010; 99285-25; J0131; J1644; P9038; P9058

== ENCOUNTER 2025-02-15 08:48 | Observation (INO) | payer OTHER ==
[2025-02-15 09:28] VITALS: BMI 23.7
[2025-02-15 09:46] LABS: ABSOLUTE IMMATURE GRANULOCYTES 0.02 x10^3/uL (0.0-0.031); BASOPHILS # 0.05 x10^3/uL (0.01-0.08); EOSINOPHIL % 9.2 % (0.8-7.0); EOSINOPHILS # 0.52 x10^3/uL (0.04-0.54); HEMOGLOBIN 7.2 g/dL (13.7-17.5); MCHC 31.3 g/dl (32.3-36.5); MEAN CELL VOLUME 100.9 fl (79.0-92.2); MEAN PLT VOLUME 9.8 fl (9.4-12.4); MONOCYTE # 0.39 x10^3/uL (0.30-0.82); MONOCYTE % 6.9 % (5.3-12.2); PLATELET COUNT 190 x10^3/uL (163-337); RDW 16.8 % (12.1-15.9)
[2025-02-15 09:57] LABS: INR 1.2 (0.83-1.09); PROTHROMBIN TIME (PATIENT) 13.1 SEC (9.7-13.0)
[2025-02-15 10:00] LABS: ACTIVATED PTT 34.7 SECONDS (25.2-36.5)
[2025-02-15 10:11] LABS: VENOUS BASE EXCESS -3.2 mmol/L (-2-2); VENOUS O2 SATURATION 44.8 % (70-80); VENOUS PH 7.328 (7.310-7.410)
[2025-02-15 10:20] LABS: POTASSIUM 4.5 mmol/L (3.5-5.1)
[2025-02-15 10:23] LABS: ALBUMIN 1.6 g/dl (3.4-5.0); BLOOD UREA NITROGEN 48.1 mg/dL (7-18)
[2025-02-15 10:24] LABS: MAGNESIUM 1.6 mg/dL (1.8-2.4)
[2025-02-15 10:25] LABS: PHOSPHOROUS 7.7 mg/dL (2.5-4.9)
[2025-02-15 10:26] LABS: CREATININE 4.8 mg/dL (0.55-1.3)
[2025-02-15 10:27] LABS: BILIRUBIN,TOTAL 0.4 mg/dL (0.2-1); TOT PROT 6.7 g/dl (6.4-8.2)
[2025-02-15] MEDS ORDERED: ACETAMINOPHEN INJECTION 100 ML ONE (10:45)
[2025-02-15] MEDS: ACETAMINOPHEN 1000 MG/100 ML BAG IVPB ONE (10:46)
[2025-02-15] MEDS: HYDROmorphone HCl 2 MG/ML VIAL IVPUSH ONE (11:02)
[2025-02-15] MEDS ORDERED: EPOETIN ALFA-EPBX 4,000 UNIT/ML VIAL SQ ONE (11:13)
[2025-02-15] MEDS: LORazepam 0.5 MG TABLET PO PRN (14:54)
[2025-02-15] MEDS ORDERED: hydrALAZINE HCL 10 MG TABLET PO PRN (15:02)
[2025-02-15] MEDS: amLODIPine BESYLATE 10 MG TABLET (FP) PO ONE (15:04)
[2025-02-15] MEDS: hydrALAZINE HCL 20 MG/ML VIAL IVPUSH PRN (17:56)
[2025-02-15] MEDS: HYDROmorphone HCL CARPU-JECT 2 MG/1 ML DISP.SYRIN IVPB ONE (18:41)
[2025-02-15] MEDS: hydrALAZINE HCL 20 MG/ML VIAL IVPUSH ONE (21:26)
[2025-02-15] MEDS: MIRTAZAPINE 15 MG TABLET (FP) PO SCH (21:26)
[2025-02-15] MEDS: MELATONIN 5 MG TABLETS PO PRN (21:26)
[2025-02-15] MEDS: oxyCODONE HCL 5 MG TABLET PO PRN (22:22)
[2025-02-15] MEDS: LABETALOL HCL 20 MG/4 ML VIAL IVPUSH ONE (23:47)
[2025-02-16] MEDS: HYDROmorphone HCL CARPU-JECT 2 MG/1 ML DISP.SYRIN IVPUSH ONE ×2 (01:43→12:26)
[2025-02-16] MEDS ORDERED: MAGNESIUM SULFATE IN WATER 2 GM/50 ML IVPB IVPB ONE (07:51)
[2025-02-16 08:37] LABS: HEMATOCRIT 21.5 % (40.1-51.0); HEMOGLOBIN 6.7 g/dL (13.7-17.5); MCHC 31.2 g/dl (32.3-36.5); MEAN CELL VOLUME 100.5 fl (79.0-92.2); MEAN PLT VOLUME 9.2 fl (9.4-12.4); PLATELET COUNT 186 x10^3/uL (163-337); RDW 16.5 % (12.1-15.9)
[2025-02-16 09:30] LABS: CHLORIDE 104 mmol/L (98-107); POTASSIUM 4.6 mmol/L (3.5-5.1); SODIUM 136 mmol/L (136-145)
[2025-02-16] MEDS ORDERED: SODIUM CHLORIDE 250 ML IV PRN (09:33)
[2025-02-16 09:35] LABS: ALBUMIN 1.7 g/dl (3.4-5.0); ANION GAP 12 mmol/L (4-13); CALCIUM 8.8 mg/dL (8.5-10.1); CO2 21 mmol/L (21-32); MAGNESIUM 1.7 mg/dL (1.8-2.4)
[2025-02-16 09:36] LABS: GLUCOSE,RANDOM 65 mg/dL (74-106)
[2025-02-16 09:38] LABS: SGOT/AST 12 U/L (15-37); SGPT/ALT < 6 U/L (13-61)
[2025-02-16 09:39] LABS: CREATININE 5.3 mg/dL (0.55-1.3); PHOSPHOROUS 8.7 mg/dL (2.5-4.9)
[2025-02-16 09:40] LABS: BILIRUBIN,TOTAL 0.5 mg/dL (0.2-1); TOT PROT 6.5 g/dl (6.4-8.2)
[2025-02-16 09:41] LABS: ALK PHOS 218 U/L (45-117)
[2025-02-16] MEDS ORDERED: ACETAMINOPHEN 1000 MG/100 ML BAG IVPB PRN (09:54)
[2025-02-16] MEDS ORDERED: FLUDROCORTISONE ACETATE 0.1 MG TABLET (FP) PO SCH (10:00)
[2025-02-16 10:48] LABS: Reticulocyte % 2.37 % (0.51-1.81)
[2025-02-16 11:08] LABS: IRON SERUM 39 ug/dL (50-175); TOTAL IRON BINDING CAPACITY 72 ug/dL (250-450)
[2025-02-16] MEDS ORDERED: HYDROmorphone HCL 2 MG TABLET PO ONE (11:11)
[2025-02-16] MEDS ORDERED: HYDROmorphone HCl 2 MG/ML VIAL IVPUSH ONE (11:13)
[2025-02-16] MEDS ORDERED: PIPERACILLIN/TAZOB 2.25 GM 2.25 GM in DEXTROSE 5%-WATER - 50 ML IVPB SCH (11:15)
[2025-02-16] MEDS ORDERED: PIPERACILLIN/TAZOB 2.25 GM 2.25 GM/50 ML BAG IVPB SCH ×2 (11:25→12:00)
[2025-02-16] MEDS: EPOETIN ALFA-EPBX 10,000 UNIT/ML VIAL IVPUSH ONE (12:15)
[2025-02-16] MEDS: PANTOPRAZOLE 40 MG TABLET PO SCH (12:27)
[2025-02-16] MEDS: amLODIPine BESYLATE 10 MG TABLET (FP) PO SCH (12:27)
[2025-02-16] MEDS: buPROPion HCL 100 MG TABLET PO SCH (12:27)
[2025-02-16] MEDS: MAGNESIUM SULFATE IN WATER 2 GM/50 ML IVPB IVPB ONE (12:43)
[2025-02-16 14:58] VITALS: BP 177/109; PULSE 86; RESP 18; TEMP 98.4
== END 2025-02-16 15:58 ==
LOC: JER 08:48 → JERBED 11:13 → J4W 14:13
PROVIDERS: ADMIT Internal Medicine; ATTEND Student in an Organized Health Care Education/Training Program
PROC: 30233N1 Transfusion of Nonautologous Red Blood Cells into Peripheral Vein, Percutaneous Approach (ICD-10-PCS; principal; 2025-02-15)
PROC: 3E033NZ Introduction of Analgesics, Hypnotics, Sedatives into Peripheral Vein, Percutaneous Approach (ICD-10-PCS; 2025-02-15)
PROC: 3E033GC Introduction of Other Therapeutic Substance into Peripheral Vein, Percutaneous Approach (ICD-10-PCS; 2025-02-15)
DX: D69.0 Allergic purpura (principal); R71.0 Precipitous drop in hematocrit; I12.0 Hypertensive chronic kidney disease with stage 5 chronic kidney disease or end stage renal disease; N18.6 End stage renal disease; Z99.2 Dependence on renal dialysis; K21.9 Gastro-esophageal reflux disease without esophagitis; E78.5 Hyperlipidemia, unspecified; M86.9 Osteomyelitis, unspecified
CPT/HCPCS: 0241U-QW; 36415; 36430; 71045-TC-FY; 80053; 82550; 82607; 82728; 82746; 82803; 83540; 83550; 83605; 83735; 84100; 84484; 85025; 85027; 85610; 85730; 86850; 86870; 86880; 86900; 86901; 86902; 86922; 87340; 93005; 93010; 96365; 96375; 96376; 99285-25; G0378; J0131; P9058